=== PATIENT | female | born 1980 | race Caucasian/White ===

== ENCOUNTER 2017-07-31 14:25 | Inpatient (IN) | payer BC ==
[~2017-07-31] VITALS: Ht 162.6 cm; Wt 76.2 kg
[2017-07-31] MEDS ORDERED: LR 1,000 ML IV SCH (15:20)
[2017-07-31] MEDS ORDERED: TERBUTALINE SULFATE 1 MG/ML VIAL ONE (15:26)
[2017-07-31] MEDS ORDERED: BETAMET ACET/BETAMET NA PH 30 MG/5 ML VIAL IM ONE (15:26)
[2017-07-31] MEDS ORDERED: MORPHINE SULFATE 10 MG/ML VIAL IM PRN (15:30)
[2017-07-31] MEDS ORDERED: TERBUTALINE SULFATE 1 MG/ML VIAL SUBCUT PRN (15:30)
[2017-07-31] MEDS ORDERED: BETAMET ACET/BETAMET NA PH 30 MG/5 ML VIAL IM SCH ×2 (15:30)
[2017-07-31 16:03] LABS: BASOPHILS % (AUTO) 0.4 % (0.0-2.0); EOSINOPHILS # (AUTO) 0.1 K/uL (0.0-0.4); EOSINOPHILS % (AUTO) 1.4 % (0.0-4.0); HEMOGLOBIN 10.9 g/dL (12.0-16.0); LYMPHOCYTES # (AUTO) 1.8 K/uL (1.0-5.5); LYMPHOCYTES % (AUTO) 26.1 % (20.5-51.5); MEAN CORPUSCULAR HEMOGLOBIN 27 pg (27-31); MEAN CORPUSCULAR HGB CONC 33 % (32-36); MEAN CORPUSCULAR VOLUME 82 fL (79.0-98.0); MONOCYTES # (AUTO) 0.5 K/uL (0.0-1.0); NEUTROPHILS # (AUTO) 4.3 K/uL (1.8-7.7); NEUTROPHILS % (AUTO) 64.1 % (40.0-70.0); PLATELET COUNT (AUTO) 226 K/uL (130-430); RED BLOOD CELL COUNT(AUTO) 4.03 MIL/uL (4.2-6.2); RED CELL DISTRIBUTION WIDTH 13.4 % (9.0-15.0); WHITE BLOOD COUNT (AUTO) 6.7 K/uL (4.8-10.8)
[2017-07-31 16:14] LABS: BILIRUBIN,URINE NEGATIVE (NEGATIVE); BLOOD, URINE NEGATIVE (NEGATIVE); CLARITY/URINE HAZY (CLEAR); COLOR,URINE YELLOW (YELLOW); GLUCOSE,URINE NEGATIVE (NEGATIVE); KETONES,URINE 1+ (NEGATIVE); NITRITE, URINE NEGATIVE (NEGATIVE); PROTEIN URINE NEGATIVE (NEGATIVE); UROBILINOGEN,URINE 0.2 (0.2-1.0)
[2017-07-31 16:15] LABS: LEUKOCYTE ESTERASE ,URINE 2+ (NEGATIVE)
[2017-07-31 16:17] LABS: BACTERIA,URINE FEW /HPF (None Seen); RBC,URINE NONE SEEN /HPF (0-3); WBC,URINE 20-50 /HPF (0-3)
[2017-07-31 16:18] LABS: MUCUS,URINE None Seen /LPF (None Seen)
[2017-07-31 16:31] VITALS: BP_SYST 115
[2017-07-31] MEDS ORDERED: FENT2mCg/mL-ROPIVA0.2%/NS EPID 150 ML EP ONE (18:21)
[2017-07-31] MEDS ORDERED: FENT2mCg/mL-ROPIVA0.2%/NS EPID 150 ML EP SCH (18:21)
[2017-07-31] MEDS ORDERED: AMPICILLIN SODIUM 2 GM in NS 100 ML IV ONE (18:30)
[2017-07-31] MEDS ORDERED: NIFEdipine 10 MG CAPSULE PO ONE (18:41)
[2017-07-31] MEDS ORDERED: AMPICILLIN SODIUM 2 GM VIAL ONE ×2 (18:41→18:42)
[2017-07-31] MEDS: NIFEdipine 10 MG CAPSULE PO SCH ×3 (20:28→21:29)
[2017-07-31] MEDS ORDERED: AMPICILLIN SODIUM 1 GM VIAL ONE (22:19)
[2017-07-31] MEDS: AMPICILLIN SODIUM 1 GM in NS 50 ML IV SCH (22:44)
[2017-08-01] MEDS: NIFEdipine 10 MG CAPSULE PO SCH ×4 (00:47→16:00)
[2017-08-01] MEDS ORDERED: AMPICILLIN SODIUM 1 GM VIAL ONE ×4 (02:23→14:46)
[2017-08-01] MEDS: AMPICILLIN SODIUM 1 GM in NS 50 ML IV SCH ×2 (02:28→06:28)
[2017-08-01] MEDS ORDERED: FENT2mCg/mL-ROPIVA0.2%/NS EPID 150 ML EP ONE (07:51)
[2017-08-01] MEDS ORDERED: FENT2mCg/mL-ROPIVA0.2%/NS EPID 150 ML EP SCH (08:30)
[2017-08-01] MEDS ORDERED: ePHEDrine sulfate 50 MG/ML VIAL IV ONE (13:07)
[2017-08-01] MEDS ORDERED: CEFAZOLIN 2 GM IVPB PREMIX 50 ML IV ONE (16:00)
[2017-08-01] MEDS ORDERED: LR 1,000 ML IV SCH ×2 (18:08→20:07)
[2017-08-01] MEDS ORDERED: KETOROLAC TROMETHAMINE 60 MG/2 ML VIAL IM PRN (18:15)
[2017-08-01] MEDS ORDERED: NS IRRIG SOLN 1000 ML IR ONE (18:15)
[2017-08-01] MEDS ORDERED: SUCCINYLCHOLINE CHLORIDE 20 MG/ML(QUELICIN) IVP ONE (18:15)
[2017-08-01] MEDS ORDERED: ONDANSETRON HCL 4 MG/2 ML VIAL IVP ONE (18:15)
[2017-08-01] MEDS ORDERED: MORPHINE SULFATE 10MG/10ML PF AMP EP SCH (18:15)
[2017-08-01] MEDS ORDERED: METOCLOPRAMIDE HCL 10 MG/2 ML VIAL IVP PRN (18:15)
[2017-08-01] MEDS ORDERED: MIDAZOLAM HCL 5 MG/ML VIAL (VERSED) IV ONE (18:15)
[2017-08-01] MEDS ORDERED: NALOXONE HCL 0.4 MG/ML AMP (NARCAN) IVP PRN (18:15)
[2017-08-01] MEDS ORDERED: SEVOFLURANE 15 MIN GAS INH ONE (18:15)
[2017-08-01] MEDS ORDERED: MORPHINE 4 MG/ML INJ. SYRINGE IVP PRN ×3 (18:15)
[2017-08-01] MEDS ORDERED: DIPHENHYDRAMINE INJ 50 MG/ML VIAL IM PRN (18:15)
[2017-08-01] MEDS ORDERED: OXYTOCIN 10 UNIT/ML VIAL IV ONE (18:15)
[2017-08-01] MEDS ORDERED: fentaNYL CITRATE 250 MCG/5 ML AMP IV ONE (18:15)
[2017-08-01] MEDS ORDERED: PROPOFOL 200MG/ 20ML VIAL (DIPRIVAN) IV ONE (18:15)
[2017-08-01] MEDS ORDERED: LR 1,000 ML IV.SOLN IV ONE (18:15)
[2017-08-01] MEDS ORDERED: ONDANSETRON HCL 4 MG/2 ML VIAL IVP PRN (18:15)
[2017-08-01] MEDS ORDERED: MORPHINE 4 MG/ML INJ. SYRINGE ONE (18:39)
[2017-08-01] MEDS ORDERED: HYDROmorphone 2 MG/ML VIAL IVP PRN (19:15)
[2017-08-01] MEDS ORDERED: HYDROmorphone 2 MG/ML VIAL ONE (19:17)
[2017-08-01] MEDS ORDERED: OXYTOCIN/NORMAL SALINE 1,000 ML IV ONE (20:07)
[2017-08-01] MEDS ORDERED: SIMETHICONE 80 MG TAB.CHEW PO PRN (20:15)
[2017-08-01] MEDS ORDERED: RHO(D) IMMUNE GLOBULIN/MALTOSE 1500 UNITS/1.3 ML (WINHRO) IM PRN (20:15)
[2017-08-01] MEDS ORDERED: MEASLES,MUMPS&RUBELLA VACC/PF 12500 UNIT/0.5 ML VIAL SUBQ PRN (20:15)
[2017-08-02] MEDS: CEFAZOLIN 1 GM IVPB PREMIX 50 ML IV SCH ×3 (00:14→12:15)
[2017-08-02] MEDS: KETOROLAC TROMETHAMINE 30 MG VIAL IVP PRN ×3 (05:54→17:48)
[2017-08-02 06:16] LABS: BASOPHILS % (AUTO) 0.1 % (0.0-2.0); HEMATOCRIT 29.5 % (36-48); HEMOGLOBIN 9.8 g/dL (12.0-16.0); LYMPHOCYTES % (AUTO) 8.2 % (20.5-51.5); MEAN CORPUSCULAR HEMOGLOBIN 27 pg (27-31); MEAN CORPUSCULAR HGB CONC 33 % (32-36); MEAN CORPUSCULAR VOLUME 82 fL (79.0-98.0); MONOCYTES % (AUTO) 8.5 % (1.7-9.3); NEUTROPHILS # (AUTO) 10.2 K/uL (1.8-7.7); NEUTROPHILS % (AUTO) 83.2 % (40.0-70.0); PLATELET COUNT (AUTO) 230 K/uL (130-430); RED BLOOD CELL COUNT(AUTO) 3.61 MIL/uL (4.2-6.2); RED CELL DISTRIBUTION WIDTH 13.2 % (9.0-15.0); WHITE BLOOD COUNT (AUTO) 12.3 K/uL (4.8-10.8)
[2017-08-02] MEDS ORDERED: OXYCODONE/ACETAMINOPHEN 5-325 TABLET PO PRN (14:30)
[2017-08-02] MEDS ORDERED: IBUPROFEN 600 MG TABLET PO SCH (18:00)
[2017-08-02] MEDS: DOCUSATE SODIUM 100 MG CAPSULE PO PRN (20:47)
[2017-08-02] MEDS: OXYCODONE/ACETAMINOPHEN 5-325 TABLET PO PRN (20:48)
[2017-08-02] MEDS: IBUPROFEN 800 MG TABLET PO SCH (23:52)
[2017-08-03] MEDS: IBUPROFEN 800 MG TABLET PO SCH ×4 (00:10→18:36)
[2017-08-03] MEDS: OXYCODONE/ACETAMINOPHEN 5-325 TABLET PO PRN ×2 (08:36→16:58)
[2017-08-03] MEDS: DOCUSATE SODIUM 100 MG CAPSULE PO PRN (13:37)
[2017-08-03] MEDS ORDERED: 0.45% NS 500 ML IV ONE (17:15)
[2017-08-03] MEDS ORDERED: ACETAMINOPHEN 500 MG TABLET PO PRN (20:45)
[2017-08-03] MEDS ORDERED: ACETAMINOPHEN 500 MG TABLET ONE (20:58)
[2017-08-04] MEDS: IBUPROFEN 800 MG TABLET PO SCH ×4 (01:27→18:24)
[2017-08-04] MEDS: OXYCODONE/ACETAMINOPHEN 5-325 TABLET PO PRN (09:42)
[2017-08-04] MEDS ORDERED: ceFAZolin SODIUM 1 GM in D5W 50 ML IV ONE (10:30)
[2017-08-04] MEDS ORDERED: CEFAZOLIN 1 GM IVPB PREMIX 50 ML IV ONE (10:51)
== END 2017-08-04 19:45 | disposition home or self-care (01) | DRG 765 ==
LOC: SPU 14:25
PROVIDERS: ADMIT Specialist; ATTEND Specialist
PROC: 10D00Z2 Extraction of Products of Conception, Extraperitoneal, Open Approach (ICD-10-PCS; principal; 2017-08-01 17:00)
PROC: 3E0R3GC Introduction of Other Therapeutic Substance into Spinal Canal, Percutaneous Approach (ICD-10-PCS; 2017-08-04)
DX: O30.003 Twin pregnancy, unspecified number of placenta and unspecified number of amniotic sacs, third trimester (principal); O60.14X0 Preterm labor third trimester with preterm delivery third trimester, not applicable or unspecified; O32.8XX0 Maternal care for other malpresentation of fetus, not applicable or unspecified; Z37.2 Twins, both liveborn; Z3A.34 34 weeks gestation of pregnancy; O09.523 Supervision of elderly multigravida, third trimester
CPT/HCPCS: 36415; 59899; 81000-TC; 85025; 86592; 86886; 86900; 86901; 87086; 94760; J0290; J0330; J0690; J0702; J1170; J1885; J2250; J2270; J2405; J2590; J2704; J3010; J3105; J7060; J7120

== ENCOUNTER 2019-07-20 06:45 | Day surgery (SDC) | payer BC ==
[~2019-07-20] VITALS: Ht 162.6 cm; Wt 68.0 kg
[2019-07-20] MEDS ORDERED: LR 500 ML IV.SOLN IV ONE (10:05)
[2019-07-20] MEDS ORDERED: MIDAZOLAM HCL 5 MG/5 ML VIAL IVP ONE (10:05)
[2019-07-20] MEDS ORDERED: fentaNYL CITRATE/PF 100 MCG/2 ML AMP IVP ONE (10:05)
[2019-07-20] MEDS ORDERED: ONDANSETRON HCL 4 MG/2 ML VIAL IVP ONE (10:05)
[2019-07-20] MEDS ORDERED: SEVOFLURANE 15 MIN GAS INH ONE (10:05)
[2019-07-20] MEDS ORDERED: NS 1000 ML IV.SOLN IV ONE (10:05)
[2019-07-20] MEDS ORDERED: NS IRRIG SOLN 1000 ML IR ONE (10:05)
[2019-07-20] MEDS ORDERED: PROPOFOL 200MG/ 20ML VIAL (DIPRIVAN) IV ONE (10:05)
[2019-07-20] MEDS ORDERED: ONDANSETRON HCL 4 MG/2 ML VIAL IVP PRN (10:45)
[2019-07-20] MEDS ORDERED: HYDROcodone/ACETAMIN 5-325 MG TAB (NORCO/ VICODIN) PO PRN (10:45)
[2019-07-20] MEDS ORDERED: OXYCODONE/ACETAMINOPHEN 5-325 TABLET PO PRN (10:45)
[2019-07-20] MEDS ORDERED: LR 1,000 ML IV SCH (10:51)
[2019-07-20] MEDS ORDERED: HYDROmorphone 1 MG INJ. 1 MG/ML AMPUL IVP PRN (11:00)
[2019-07-20] MEDS ORDERED: METOCLOPRAMIDE HCL 10 MG/2 ML VIAL IVP PRN (11:00)
[2019-07-20] MEDS ORDERED: MORPHINE 4 MG/ML INJ. SYRINGE IVP PRN ×3 (11:00)
[2019-07-20 11:56] VITALS: BP_SYST 116
== END 2019-07-20 12:30 | disposition home or self-care (01) ==
LOC: SDS 06:45 → SMU 06:46 → SDS 12:30
PROVIDERS: ATTEND Specialist
DX: N84.0 Polyp of corpus uteri (principal); N92.6 Irregular menstruation, unspecified; N72 Inflammatory disease of cervix uteri; Z79.899 Other long term (current) drug therapy
CPT/HCPCS: 58558; 88305; J2250; J2405; J2704; J3010; J7030; J7120

== ENCOUNTER 2022-01-02 05:29 | Emergency (ER) | payer BC, MEDICAID ==
[~2022-01-02] VITALS: Ht 162.6 cm; Wt 70.8 kg
[2022-01-02 05:30] VITALS: BP_SYST 132
[2022-01-02] MEDS ORDERED: NACL 0.9% 1,000 ML IV ONE (06:00)
[2022-01-02 06:25] LABS: ANION GAP 14 (5-15); CALCIUM 8.5 mg/dL (8.4-11.0); CHLORIDE 108 mmol/L (98-107); CREATININE 0.95 mg/dL (0.55-1.30); GLUCOSE 105 mg/dL (70-99); SODIUM SERUM 142 mmol/L (136-145); UREA NITROGEN, BLOOD 11 mg/dL (8-21)
[2022-01-02 06:28] LABS: BILIRUBIN,URINE NEGATIVE (NEGATIVE); BLOOD, URINE 2+ (NEGATIVE); CLARITY/URINE CLEAR (CLEAR); COLOR,URINE YELLOW (YELLOW); GLUCOSE,URINE NEGATIVE (NEGATIVE); KETONES,URINE NEGATIVE (NEGATIVE); LEUKOCYTE ESTERASE ,URINE NEGATIVE (NEGATIVE); NITRITE, URINE NEGATIVE (NEGATIVE); PROTEIN URINE NEGATIVE (NEGATIVE); UROBILINOGEN,URINE 0.2 (0.2-1.0)
[2022-01-02 06:29] LABS: BASOPHILS % (AUTO) 0.6 % (0.0-2.0); EOSINOPHILS # (AUTO) 0.2 K/uL (0.0-0.4); EOSINOPHILS % (AUTO) 3.1 % (0.0-4.0); HEMATOCRIT 31.9 % (36-48); HEMOGLOBIN 10.7 g/dL (12.0-16.0); LYMPHOCYTES # (AUTO) 1.4 K/uL (1.0-5.5); LYMPHOCYTES % (AUTO) 26.2 % (20.5-51.5); MEAN CORPUSCULAR HEMOGLOBIN 27 pg (27-31); MEAN CORPUSCULAR HGB CONC 34 % (32-36); MEAN CORPUSCULAR VOLUME 79 fL (79.0-98.0); MONOCYTES # (AUTO) 0.3 K/uL (0.0-1.0); NEUTROPHILS # (AUTO) 3.4 K/uL (1.8-7.7); NEUTROPHILS % (AUTO) 64.1 % (40.0-70.0); PLATELET COUNT (AUTO) 385 K/uL (130-430); RED BLOOD CELL COUNT(AUTO) 4.05 MIL/uL (4.2-6.2); RED CELL DISTRIBUTION WIDTH 17.3 % (9.0-15.0); WHITE BLOOD COUNT (AUTO) 5.3 K/uL (4.8-10.8)
[2022-01-02 06:30] LABS: ALANINE AMINOTRANSFERASE 13 U/L (12-78); ASPARTATE AMINOTRANSFERASE 11 U/L (10-37); GFR AFRICAN AMERICAN 83 mL/min (>90); TOTAL BILIRUBIN < 0.1 mg/dL (0.0-1.0)
[2022-01-02 06:46] LABS: PROTHROMBIN TIME 10.1 SECS (9.5-12.5)
[2022-01-02 06:53] LABS: BACTERIA,URINE FEW /HPF (None Seen); RBC,URINE 0-3 /HPF (0-3); WBC,URINE 0-3 /HPF (0-3)
[2022-01-02 08:13] VITALS: BP_SYST 116
== END 2022-01-02 08:13 | disposition home or self-care (01) ==
LOC: SED 05:29
DX: N93.9 Abnormal uterine and vaginal bleeding, unspecified (principal)
CPT/HCPCS: 36415; 71045; 80053; 81000; 83880; 84703; 85025; 85610; 85730; 86886; 86900; 86901; 93005; 96360; 99285; J7030